=== PATIENT | male | born 1980 | race Caucasian/White ===

== ENCOUNTER 2017-04-14 16:47 | Emergency (ER) | payer SELFPAY ==
[~2017-04-14] VITALS: Ht 177.8 cm; Wt 85.5 kg
[~2017-04-14 16:47] MED LIST: AMOXICILLIN500 MG PO; BACTRIM,SEPT1 TABLET PO; CARAFATE1 GM PO; EQUATE1 EACH MC; FLEXERIL10 MG PO; MOTRIN IB200 MG PO; MOTRIN600 MG PO; MOTRIN800 MG PO; NAPROSYN500 MG PO; PEN-VEE K,VEET500 MG PO; PERCOCET 5/31 TABLET PO; PROTONIX40 MG PO; SEROQUEL XR150 MG PO; SUBOXONE 8 M1 TABLET PO; TRAZODONE HCL100 MG PO; ULTRAM50 MG PO; VALIUM5 MG PO; VICODIN 5-3001 EACH PO; VICODIN,LORT1 TABLET PO; ZITHROMAX Z-PA250 MG PO
[2017-04-14] MEDS ORDERED: NAPROXEN500 MG PO (19:37)
[2017-04-14 19:54] VITALS: BP 132/83
== END 2017-04-14 19:54 | disposition home or self-care (01) ==
LOC: EME 16:47
DX: S30.22XA Contusion of scrotum and testes, initial encounter (principal); W01.198A Fall on same level from slipping, tripping and stumbling with subsequent striking against other object, initial encounter; Y93.89 Activity, other specified; Y99.0 Civilian activity done for income or pay; F17.200 Nicotine dependence, unspecified, uncomplicated
CPT/HCPCS: 76870; 81003; 99281; 99283

== ENCOUNTER 2018-02-10 18:55 | Emergency (ER) | payer SELFPAY ==
[~2018-02-10] VITALS: Ht 177.8 cm; Wt 87.9 kg
[~2018-02-10 18:55] MED LIST changes: +NAPROXEN500 MG PO
[2018-02-10 20:07] LABS: HEMATOCRIT 40.4 % (38.0-50.0); HEMOGLOBIN 14.3 G/DL (12.5-16.6); MCH 32.2 PG (29.0-34.0); MCHC 35.4 G/DL (30.0-36.0); PLATELET COUNT 221 K/uL (156-360); RBC DIS.WIDTH-CV 12.9 % (11.8-14.6); RBC DIS.WIDTH-SD 42.4 % (39-53); RED BLOOD COUNT 4.44 M/uL (4.00-5.50); WHITE BLOOD COUNT 12.5 K/uL (4.1-10.2)
[2018-02-10 20:18] LABS: ALBUMIN 4.3 g/dL (3.2-4.8); CHLORIDE 106 mEq/L (99-109); POTASSIUM 3.8 mEq/L (3.7-5.4); SODIUM 142 mEq/L (136-147)
[2018-02-10 20:20] LABS: GLUCOSE 127 mg/dL (70-99); TOTAL PROTEIN 6.9 g/dL (6.4-8.3)
[2018-02-10 20:22] LABS: TOTAL BILIRUBIN 0.5 mg/dL (0.0-1.0)
[2018-02-10 20:23] LABS: SERUM ETHYL ALCOHOL < 10 mg/dL
[2018-02-10 20:24] LABS: ALKALINE PHOSPHATASE 79 IU/L (3-129); CREATININE 1.1 mg/dL (0.6-1.3); GFR ESTIMATE (CALCULATED) > 59 mL/min/ (58.99-99999)
[2018-02-10 20:25] LABS: AST (GOT) 23 IU/L (2-34); UREA NITROGEN (BUN) 18 mg/dL (9-23)
[2018-02-10 20:27] LABS: ALT (GPT) 21 IU/L (3-49)
[2018-02-10] MEDS ORDERED: NARCAN4 MG NS (20:29)
[2018-02-10 20:56] VITALS: BP 133/93
== END 2018-02-10 20:58 | disposition home or self-care (01) ==
LOC: EME 18:55
PROVIDERS: Emergency Medicine
DX: T40.1X1A Poisoning by heroin, accidental (unintentional), initial encounter (principal); F17.200 Nicotine dependence, unspecified, uncomplicated
CPT/HCPCS: 80053; 81003; 85027; 99281; 99284; G0480